=== PATIENT | female | born 1985 | race Caucasian/White ===

== ENCOUNTER 2016-10-16 08:22 | Emergency (ER) | payer OTHER | END 2016-10-16 10:02 | disposition home or self-care (01) | LOC: FER 08:22 | DX: S80.02XA Contusion of left knee, initial encounter (principal); S80.01XA Contusion of right knee, initial encounter; Z88.5 Allergy status to narcotic agent; V49.40XA Driver injured in collision with unspecified motor vehicles in traffic accident, initial encounter; Y92.410 Unspecified street and highway as the place of occurrence of the external cause | CPT/HCPCS: 73564; J1885 ==

== ENCOUNTER 2020-12-25 01:09 | Emergency (ER) | payer OTHER ==
[~2020-12-25 01:09] MED LIST: BENTYL10 MG PO; CYCLOBENZAPRINE10 MG PO; KEFLEX500 MG PO; MEDROL 4MG DOSEP4 MG PO; MOTRIN600 MG PO; NAPROXEN500 MG PO; PROCTOZONE-HC 230 GM TOP; ZOFRAN4 MG PO
== END 2020-12-25 05:41 | disposition home or self-care (01) ==
LOC: FER 01:09
DX: S00.03XA Contusion of scalp, initial encounter (principal); Y04.2XXA Assault by strike against or bumped into by another person, initial encounter; Y92.89 Other specified places as the place of occurrence of the external cause
CPT/HCPCS: 70450; J1885; J2405; J7030

== ENCOUNTER 2021-10-22 14:54 | Emergency (ER) | payer OTHER ==
[2021-10-22 15:42] LABS: BILIRUBIN NEGATIVE (NEGATIVE); BLOOD NEGATIVE Ery/uL (NEGATIVE); CLARITY CLEAR (CLEAR); COLOR YELLOW (YELLOW); GLUCOSE (U) NORMAL (NORMAL); LEUKOCYTES NEGATIVE Leu/uL (NEGATIVE); NITRITE NEGATIVE (NEGATIVE); PROTEIN 1+ mg/dL (NEGATIVE); SPECIFIC GRAVITY >=1.030 (1.001-1.030); UROBILINOGEN 0.2 mg/dL (0.2-1.0); pH 5.5 (5.0-9.0)
[2021-10-22 15:42] LABS: BASOPHIL 0.3 % (0-2); EOSINOPHIL 0.1 % (0-5); HCT 37.4 % (37.0-47.0); HGB 12.3 g/dl (12.5-16.0); LYMPHOCYTE 3.1 % (15-48); MCH 28.3 pg (25.0-31.0); MCHC 32.9 g/dL (32.0-36.0); MCV 86.2 fL (78.0-100.0); MONOCYTE 2.7 % (0-12); MPV 10.5 fL (6.0-9.5); NEUTROPHIL 93.2 % (41-80); NRBC 0; PLT 243 K/uL (150-400); RBC 4.34 M/uL (4.20-5.40); RDW 12.8 % (11.5-14.0); WBC 15.9 K/uL (4.0-10.5)
[2021-10-22 15:46] LABS: AMPHETAMINES NEGATIVE (NEGATIVE); BARBITURATES NEGATIVE (NEGATIVE); ECSTASY (MDMA) NEGATIVE (NEGATIVE); MARIJUANA (THC) POSITIVE (NEGATIVE); METHADONE NEGATIVE (NEGATIVE); OPIATES NEGATIVE (NEGATIVE); OXYCODONE NEGATIVE (NEGATIVE)
[2021-10-22 15:50] LABS: MUCOUS LARGE; URINARY RBC RARE; URINARY WBC RARE
[2021-10-22 15:58] LABS: ALBUMIN 4.5 g/dL (3.4-5.0); BILIRUBIN - TOTAL 0.4 mg/dL (0.2-1.0); BUN/CREAT RATIO (CALC) 24.1 RATIO; CREATININE 0.83 mg/dL (0.51-0.95); GLOBULIN (CALCULATION) 3.4 g/dL; POTASSIUM 4.3 mmol/L (3.5-5.1); TOTAL PROTEIN 7.9 g/dL (6.4-8.2)
[2021-10-22] MEDS ORDERED: ONDANSETRON ODT4 MG PO (16:31)
== END 2021-10-22 16:45 | disposition home or self-care (01) ==
LOC: FER 14:54
PROVIDERS: Physician Assistant
DX: R11.10 Vomiting, unspecified (principal); E11.9 Type 2 diabetes mellitus without complications; Z88.5 Allergy status to narcotic agent
CPT/HCPCS: 36415; 80053; 80305; 81001; 83690; 85025; J2405; J7030